=== PATIENT | female | born 1940 | race Caucasian/White ===

== ENCOUNTER → 2017-05-31 | Outpatient (CLI) | payer MEDICARE, BC | LOC: RAD 08:51 | DX: R30.0 Dysuria (principal); R30.9 Painful micturition, unspecified ==

== ENCOUNTER → 2017-11-22 | Outpatient (CLI) | payer MEDICARE, BC | LOC: MAMMO 09:55 → RAD 10:00 | DX: Z12.31 Encounter for screening mammogram for malignant neoplasm of breast (principal) | CPT/HCPCS: G0202 ==

== ENCOUNTER → 2018-11-27 | Outpatient (CLI) | payer MEDICARE, BC | LOC: MAMMO 12:50 | DX: Z12.31 Encounter for screening mammogram for malignant neoplasm of breast (principal) ==

== ENCOUNTER → 2019-08-21 | Outpatient (CLI) | payer MEDICARE, BC | LOC: LAB 09:08 | DX: M89.8X1 Other specified disorders of bone, shoulder (principal); M50.30 Other cervical disc degeneration, unspecified cervical region; M25.522 Pain in left elbow ==

== ENCOUNTER → 2019-12-01 | Outpatient (CLI) | payer MEDICARE, BC | LOC: MAMMO 10:46 | DX: Z12.31 Encounter for screening mammogram for malignant neoplasm of breast (principal) ==

== ENCOUNTER → 2020-12-07 | Outpatient (CLI) | payer MEDICARE, BC | LOC: MAMMO 08:22 | DX: Z12.31 Encounter for screening mammogram for malignant neoplasm of breast (principal) ==

== ENCOUNTER → 2022-01-20 | Outpatient (CLI) | payer MEDICARE, BC | LOC: MAMMO 08:35 | DX: Z12.31 Encounter for screening mammogram for malignant neoplasm of breast (principal) ==

== ENCOUNTER 2022-05-22 09:33 | Outpatient (RCR) | payer MEDICARE, BC | END 2022-05-25 | disposition home or self-care (01) | LOC: PT | DX: M17.11 Unilateral primary osteoarthritis, right knee (principal) ==

== ENCOUNTER 2022-05-26 09:58 | Outpatient (RCR) | payer MEDICARE, BC | END 2022-06-25 | disposition home or self-care (01) | LOC: PT | DX: M17.11 Unilateral primary osteoarthritis, right knee (principal) ==

== ENCOUNTER 2022-06-26 07:55 | Outpatient (RCR) | payer MEDICARE, BC | END 2022-07-26 14:17 | disposition home or self-care (01) | LOC: PT 07:55 | DX: M17.11 Unilateral primary osteoarthritis, right knee (principal) ==

== ENCOUNTER → 2022-07-05 | Outpatient (CLI) | payer MEDICARE, BC | LOC: RAD 07:30 | DX: M25.561 Pain in right knee (principal); M25.461 Effusion, right knee; Z96.651 Presence of right artificial knee joint ==

== ENCOUNTER → 2022-10-04 | Outpatient (CLI) | payer MEDICARE, BC | LOC: RAD 08:30 | DX: M25.561 Pain in right knee (principal); Z96.651 Presence of right artificial knee joint ==

== ENCOUNTER → 2023-02-08 | Outpatient (CLI) | payer MEDICARE | LOC: MAMMO 09:44 | DX: Z12.31 Encounter for screening mammogram for malignant neoplasm of breast (principal) ==

== ENCOUNTER → 2024-05-28 | Outpatient (CLI) | payer MEDICARE | LOC: RAD 08:26 | DX: M25.561 Pain in right knee (principal); M25.552 Pain in left hip; Z96.651 Presence of right artificial knee joint ==

== ENCOUNTER → 2024-07-15 | Day surgery (SDC) | payer MEDICARE | LOC: MSO 12:29 | DX: M47.817 Spondylosis without myelopathy or radiculopathy, lumbosacral region (principal); M54.50 Low back pain, unspecified | CPT/HCPCS: J0665 ==

== ENCOUNTER → 2024-08-06 | Outpatient (CLI) | payer MEDICARE | LOC: RAD 08:19 | DX: M16.0 Bilateral primary osteoarthritis of hip (principal) ==

== ENCOUNTER → 2024-12-12 | Outpatient (CLI) | payer MEDICARE | LOC: RAD 10:25 | DX: M16.0 Bilateral primary osteoarthritis of hip (principal); M47.816 Spondylosis without myelopathy or radiculopathy, lumbar region; M41.85 Other forms of scoliosis, thoracolumbar region ==